=== PATIENT | female | born 1995 | race Caucasian/White ===

== ENCOUNTER 2023-01-15 08:44 | Inpatient (IN) | payer OTHER, SELFPAY ==
--- NOTE | 2023-01-15 10:12 | PM.OBHP.1 ---
OB HPI Date/Time Date of admission: 01/15/23 Date Patient Seen: 01/15/23 Time Patient Seen: 10:00 History of Present Condition Chief complaint: PROM : 3 Para: 1 Estimated Date of Delivery: 01/29/23 Estimated Gestational Age (weeks): 38 Narrative: Shanelle Lara is a 27 year old female at 38 weeks 0 days by LMP, concordant with 8 week US. She received uncomplicated, regular care with CNM. She felt a gush of clear and blood tinged fluid at 0630 and has continued to feel leaking since. Mild contractions began 20 minutes after her water broke. movement has been regular. She is GBS positive and has been counseled extensively on the recommendation for treatment in labor; she plans to decline treatment until she has been ruptured for >18hrs or develops signs of an infection. She desires an unmedicated and low intervention , and is accompanied by her supportive Cristo. History of Present care: good care, initiated at week # (8), number of visits (9) and pounds weight gain (29) Dating criteria: LMP confirmed by 1st trimester US Ultrasounds: normal 1st trimester US and normal mid trimester US Obstetrical complications: none Medical complications: none Preadmission Labs Blood type: A (+) positive -: Antibody screen: negative, GBS status: positive, HBsAG: negative, HIV: negative and RPR/VDLR: negative -: Chlamydia screen: not detected and Gonorrhea screen: not detected -: Rubella: immune and Varicella: immune HCT: 34.6 HCAB: negative 1 hr GTT: 95 Prior (ies) History: NSVB - 07/2020 @ 39.4, PROM Evaluation Evaluation Baseline heart rate: 145 Variability: Moderate (11-25) monitor accelerations: Present Monitor Decelerations: Absent Contraction Frequency (minutes): 4 (2-5) Uterine Contraction Intensity: Mild Category of Tracing: Reactive Dilation (cm): 3 Effacement (%): 75 Dilation: 3-4 cm Effacement: 60-70% station: -2 Position of cervix: posterior Consistency: soft Hastings score: 7 Non-invasive Membranes Rupture Test: positive PFSH Family History (Updated 01/15/23 @ 10:27 by Shanelle Fregoso, VANESA, [employer]) Grandfather Heart disease Hypertension Stroke Grandmother Heart disease Hypertension Stroke Mother Osteoporosis Social History (Updated 01/15/23 @ 10:27 by Shanelle Fregoso CNM, [employer]) do you feel safe at home: Yes Smoking Status: Never smoker alcohol intake: former substance use type: does not use Meds Home Medications and Allergies Allergies Allergy/AdvReac Type Severity Reaction Status Date / Time No Known Drug Allergies Allergy Verified 01/15/23 10:28 Review of Systems Review of Systems ROS: Yes All systems reviewed with the patient and are negative except as otherwise documented OB Exam Vital signs Blood Pressure: 119/75 Pulse Rate: 90 Temperature: 97.5 F Resp Effort & Inspection: normal respiratory effort and able to speak in complete sentences Auscultation: clear to auscultation bilaterally Cardio Rate: regular rate Rhythm: regular rhythm Presentation: vertex Amniotic Fluid: clear Objective Labs Labs: Amnisure positive Assessment and Plan Assessment and Plan Assessment and Plan narrative: A: 27yo female at 38 weeks 0 day PROM, 4hrs, clear fluid, no signs of infection Early labor GBS positive, prophylaxis indicated Rh positive NST reactive P: Intermittent auscultation Declines recommended saline lock IV but consents to admission labs. Recommended starting GBS prophylactic antibiotics now that Shanelle is ruptured. She declines treatment at this time. Reviewed risks and benefits of expectant management vs active management of PROM. Plan expectant management for now, re-evaluate in 4-6 hours or sooner, PRN Anticipate
[2023-01-15 10:34] VITALS: BP 119/75; PULSE 90; TEMP 36.4
--- NOTE | 2023-01-15 13:02 | PM.OBPNLAB ---
Date/Time Date Patient Seen: 01/15/23 Time Patient Seen: 13:00 Pain Control Pain control: tolerating well Comments: Moaning and rocking with contractions, resting on side, reports increasing intensity. Cristo good support at bedside. Pelvic Exam Comments: BP Contractions Date/Time contractions began: 119/75 HR 90 T 36.4 C Intermittent monitoring: FHR 125 bpm with audible incresaes, no decreases. Contractions on admission: irregular Monitor mode: External Contraction frequency (min): 4 Contraction duration (min): 1 Contraction pattern: Regular Contraction intensity: Strong/Firm Assessment and Plan Assessment: active labor Plan: continuous present management Comments: Anticipate
[2023-01-15] MEDS: OXYTOCIN 10 UNIT/ML VIAL IM (16:45)
--- NOTE | 2023-01-15 17:00 | PM.OBPRVD ---
Events: Premature Rupture Membrane Labor & Delivery Delivery date: 01/15/23 Intrapartal Events: None Cervical ripening method: none Induction method: none Delivery monitor: external FHT Route of delivery: Episiotomy description: None L&D Laceration Description: None Quantitative Blood Loss: 300 Anesthesia Type: None Narrative: Shanelle started pushing spontaneously in hands and knees position, and was presumed to be complete, with rectal bulging shortly after. The head crowned slowly over many pushes, delivered OA and restituted to JUANITA. The anterior and posterior shoulders, and body, all delivered easily but slowly due to maternal pushing effort; there was no nuchal cord. The vigorous boy was dried with warm blankets and then passed through Shanelle's legs and placed on the bed in front of her. Apgars 8/9. Shanelle was assisted to her back and the placed skin to skin on her abdomen. The umbilical cord was double clamped and cut by FOB Cristo well after pulsing had stopped. Unable to collect sufficient cord blood sample. After 20 minutes without placental separation and stable bleeding, Shanelle consented to 10u IM pitocin. With gentle cord traction and one maternal push, the apparently intact placenta then delivered easily, along with membranes and a three vessel cord. Fundus immediately firm, bleeding minimal. Her perineum was inspected and found to be intact. QBL 300ml. Shanelle and baby vinny Osborne were skin to skin and stable as I left the room. [place] Baby 1: Infant gender: Male Presentation: vertex Position: Left Occiput Anterior Placenta delivery description: Spontaneous score (1 min): 8 score (5 min): 9 weight: 3.49 kg Plan for aftercare: Routine care
[2023-01-15] MEDS: IBUPROFEN 600 MG TABLET PO ×2 (17:30→23:01)
[2023-01-15] MEDS: ACETAMINOPHEN 325 MG TABLET 650 MG PO ×2 (17:31→23:01)
[2023-01-15 18:17] VITALS: BP 120/79
[2023-01-16] MEDS: ACETAMINOPHEN 325 MG TABLET 650 MG PO ×2 (05:32→11:23)
[2023-01-16] MEDS: IBUPROFEN 600 MG TABLET PO ×2 (05:32→11:22)
--- NOTE | 2023-01-16 13:48 | P.DS_ITS ---
Discharge Providers Provider Date of admission: 01/15/23 08:44 Discharge Date: 01/16/23 Consults: 01/15/23 10:56 Consult to Anesthesiology Urgent Comment: Consulting Provider: Anesthesiologist Reason for consultation: Epidural Has provider been notified: No 01/16/23 00:49 Consult to Senior Sustainability Advisor Routine Comment: Per pt request. Would like consult prior to D/C 01/16/23 16:52 Consult to Senior Sustainability Advisor Routine Comment: Discharge provider: Shanelle Fregoso CNM, ARNP Summary Hospital Course Date Patient Seen: 01/16/23 Time Patient Seen: 13:48 Diagnoses: Z39.1 [id number] Hospital Course: Shanelle arrived to L&D approx 3 hours after PROM. Labor was spontaneous and progressed normally, resulting in . Normal course. Intact perineum. Normal blood loss. . Peripartum Data Delivery Method: Natural Vaginal Laceration Description: None Procedures: 1: Gender: Male Disposition of : home Discharge Diagnosis (1) (normal spontaneous vaginal delivery): Status: Acute (2) Breast feeding status of mother: Status: Acute (3) Intact perineum: Status: Acute Status at Discharge Cognitive/behavioral status at discharge: oriented Functional status at discharge: independent ambulation Overall status at discharge: patient is progressing back to baseline Time Spent with Patient Time attestation: Total time spent providing and/or coordinating discharge services: Objective Labs Labs: Patient declined labs on admission Exam Vital Signs (past 8 hours): BP: 107/69 HR 88 SpO2 98% Temp 98.6 F temporal Denies pain Other: Fundus firm at U, midline. Lochia scant Perineum intact with minimal edema Discharge Plan Discharge Plan Patient Disposition: Home Discharge orders & Medications Medication counseling provided by Pharmacist: No Follow up/Referrals: Qi Decker ARNP [Non-Staff] - 2 Weeks (as scheduled, see email ) Shanelle Fregoso CNM, ARNP [Advanced [employer] T[employer]ine [employer]er] - Activity Restrictions/Additional Instructions: Low boyle for 2 weeks Diet/Activity/Treatments Diet: Diet as Tolerated Diet comment: Increase clear fluids and fiber to support stool health Activity: appointments only Cold/Heat Therapy: as needed Skin/Wound/Dressing Care Skin care: usual care Report to your healthcare provider any signs of infection, such as:: chills, fever, increased pain, unusual drainage and unusual redness Visit Report/Discharge Packet Instructions: DI for Labor and Delivery, Vaginal Stand Alone Forms: Patient Portal/API
[2023-01-16 14:10] VITALS: BP 120/79; PULSE 90; RESP 16; TEMP 36.4
[2023-01-16 14:27] VITALS: BP 120/79; PULSE 90; RESP 16; TEMP 36.4
== END 2023-01-16 17:00 | disposition home or self-care (01) | DRG 807 ==
PROVIDERS: Admitting Provider Nurse Practitioner Obstetrics & Gynecology; Referring Provider Nurse Practitioner Obstetrics & Gynecology; Visit Provider Nurse Practitioner Obstetrics & Gynecology
DX: O42.02 Full-term premature rupture of membranes, onset of labor within 24 hours of rupture (principal); Z37.0 Single live birth; Z3A.38 38 weeks gestation of pregnancy; O99.824 Streptococcus B carrier state complicating childbirth
CPT/HCPCS: 59025; 59050; 84112; G0379; J2590